=== PATIENT | male | born 1995 | race Caucasian/White ===

== ENCOUNTER 2022-01-20 22:44 | Inpatient (IN) | payer OTHER ==
[~2022-01-20] VITALS: Ht 170.2 cm; Wt 78.9 kg
[2022-01-21] MEDS ORDERED: VISCOUS LIDOCAINE 2% 15 ML UDC PO STA (01:10)
[2022-01-21] MEDS ORDERED: ONDANSETRON 4MG ODT PO STA (01:10)
[2022-01-21] MEDS ORDERED: MAGNESIUM/ALUMINUM HYDROXIDE/SIMETHICONE 30ML UDC PO STA (01:10)
[2022-01-21] MEDS ORDERED: FAMOTIDINE 20MG TABLET PO ONE (01:15)
[2022-01-21 01:37] LABS: HEMATOCRIT. 44.3 % (36.0-48.0); MEAN CORPUSCULAR HEMOGLOBIN 28.4 pg (28.0-32.0); MEAN CORPUSCULAR VOLUME 83.7 fL (81.0-99.0); MEAN PLATELET VOLUME 7.9 fl (7.4-10.4); PLATELET 256 x1000/uL (130-400); RED BLOOD CELL COUNT 5.29 mill/uL (4.2-5.4)
[2022-01-21 01:45] LABS: CHLORIDE 104 mEq/L (98-107)
[2022-01-21 01:49] LABS: INR 1.1; PROTHROMBIN TIME 11.6 sec (9.6-11.0)
[2022-01-21] MEDS ORDERED: ONDA4TAB11 PO (02:03)
[2022-01-21] MEDS ORDERED: CIPR-263 MT (02:03)
[2022-01-21] MEDS ORDERED: SODIUM CHLORIDE 0.9% 1,000 ML IV ONE (02:45)
[2022-01-21] MEDS ORDERED: MORPHINE SULFATE 4 MG/ML CPJ (NOT FOR IM USE) IV ONE (02:45)
[2022-01-21 04:28] LABS: PLATELET ESTIMATE NORMAL
[2022-01-21] MEDS ORDERED: PIPERACILLIN/TAZOBACTAM 3.375GM/50ML PREMIX IV ONE (05:30)
[2022-01-21] MEDS ORDERED: PIPERACILLIN/TAZ 3.375G PREMIX 50 ML IV NR (05:30)
[2022-01-21 06:01] LABS: INR 1.1; PARTIAL THROMBOPLASTIN TIME 31.6 sec (23.4-31.0); PROTHROMBIN TIME 11.8 sec (9.6-11.0)
[2022-01-21] MEDS ORDERED: PROPOFOL 200MG/20ML VIAL IV ONE (06:29)
[2022-01-21] MEDS ORDERED: MIDAZOLAM HCL 2 MG/2 ML VIAL ONE (06:31)
[2022-01-21] MEDS ORDERED: ROCURONIUM BROMIDE 10MG/ML VIAL 5ML IV ONE (06:32)
[2022-01-21] MEDS ORDERED: FENTANYL CITRATE/PF 50MCG/ML 2ML VIAL ONE (06:32)
[2022-01-21] MEDS ORDERED: DEXAMETHASONE 4MG/ML 1ML VIAL ONE (06:39)
[2022-01-21] MEDS ORDERED: ONDANSETRON HCL 4MG/2ML INJ ONE (06:39)
[2022-01-21] MEDS ORDERED: CEFAZOLIN SODIUM 1000MG/VIAL ONE ×2 (06:40)
[2022-01-21] MEDS ORDERED: SUCCINYLCHOLINE CHLORIDE 200MG/10ML IV ONE ×3 (06:40→07:43)
[2022-01-21] MEDS ORDERED: BUPIVACAINE HCL/PF 0.5% (5MG/ML) 10ML ONE (06:49)
[2022-01-21] MEDS ORDERED: SKIN ADHESIVE 0.7 GM EA TOP ONE (06:49)
[2022-01-21] MEDS ORDERED: MORPHINE SULFATE 4 MG/ML CPJ (NOT FOR IM USE) IV PRN (07:00)
[2022-01-21] MEDS ORDERED: ONDANSETRON HCL 4MG/2ML INJ IV PRN (07:00)
[2022-01-21] MEDS ORDERED: MORPHINE SULFATE 2 MG/ML CPJ (NOT FOR IM USE) IV PRN (07:00)
[2022-01-21] MEDS ORDERED: HYDROCODONE/ACETAMINOPHEN 5/325MG TABLET PO PRN ×2 (07:00)
[2022-01-21] MEDS ORDERED: KETOROLAC 30MG/ML VIAL ONE (07:38)
[2022-01-21] MEDS ORDERED: ATROPINE SULFATE 0.4MG/ML VIAL IV PRN (07:45)
[2022-01-21] MEDS ORDERED: HYDROMORPHONE HCL/PF 2MG/ML CPJ IV PRN (07:45)
[2022-01-21] MEDS ORDERED: FENTANYL CITRATE/PF 50MCG/ML 2ML VIAL IV PRN (07:45)
[2022-01-21] MEDS ORDERED: DEXT 5%/0.45% NACL KCL 20MEQ/L 1,000 ML IV SCH ×2 (08:30→13:00)
[2022-01-21 12:00] VITALS: BP 116/68
[2022-01-21 14:00] VITALS: BP 116/68
[2022-01-21 16:00] VITALS: BP 117/70
[2022-01-21 20:00] VITALS: BP 118/75
[2022-01-21 20:21] VITALS: BP 115/80
== END 2022-01-21 21:16 | disposition home or self-care (01) | DRG 343 ==
LOC: ER 22:44 → EDSEX 22:44 → 6EST 01-21 05:36
PROVIDERS: ADMIT Internal Medicine; ATTEND Internal Medicine
PROC: 0DTJ4ZZ Resection of Appendix, Percutaneous Endoscopic Approach (ICD-10-PCS; principal; 2022-01-21)
DX: K35.80 Unspecified acute appendicitis (principal); K38.1 Appendicular concretions; Z20.822 Contact with and (suspected) exposure to COVID-19
CPT/HCPCS: 36415; 74176; 80053; 85025; 87426; 88304; 99285; C9803; J0330; J0690; J1100; J1885; J2250; J2270; J2405; J2543; J2704; J3010; J3490; J7030; Q0162